=== PATIENT | female | born 1970 | race Caucasian/White ===

== ENCOUNTER 2021-05-21 09:34 | Outpatient (CLI) | payer OTHER, SELFPAY ==
--- NOTE | 2021-05-21 11:30 | NEURO_ITS ---
Impression: # Complains of left foot numbness. # Normal nerve conduction study except left peroneal amplitude drop compared to posterior tibial nerve. # Normal and symmetrical F-waves. # Needle/EMG exam not requested. # Clinical correlation recommended; Possible left peroneal nerve dysfunction. Nerve Conduction Studies Anti Sensory Summary Table Stim Site NR Peak (ms) P-T Amp (?V) Site1 Site2 Delta-P (ms) Dist (cm) Larry (m/s) Left Sup Fibular Anti Sensory (Ant Lat Mall) 14 cm 3.0 13.2 14 cm Ant Lat Mall 3.0 16.0 53 Left Sural Anti Sensory (Lat Mall) Calf 4.0 10.2 Calf Lat Mall 4.0 18.0 45 Motor Summary Table Stim Site NR Onset (ms) O-P Amp (mV) Site1 Site2 Delta-0 (ms) Dist (cm) Larry (m/s) Left Peroneal Motor (Vastus Med) Ankle 3.6 0.9 Popit Ankle 6.8 40.0 59 Popit 10.4 0.8 Left Tibial Motor (Abd Abraham Brev) Ankle 3.8 5.3 Knee Ankle 8.2 41.0 50 Knee 12.0 4.4 F Wave Studies NR F-Lat (ms) L-R F-Lat (ms) Left Peroneal (Mrkrs) (EDB) 50.41 Left Tibial (Mrkrs) (Abd Hallucis) 49.97 MTDD
== END 2021-05-21 09:35 | disposition home or self-care (01) ==
PROVIDERS: PCP Family Medicine Adolescent Medicine; Visit Provider Physician Assistant
DX: M54.2 Cervicalgia (principal)
CPT/HCPCS: 95908

== ENCOUNTER → 2021-08-22 13:01 | Outpatient (CLI) | payer OTHER, SELFPAY ==
--- NOTE | ~2021-08-22 | MM_ITS ---
EXAMINATION: MM screening marzena BI w rolf HISTORY: Screening TECHNIQUE: Craniocaudal and mediolateral oblique 3-D tomosynthesis images were obtained and synthetic 2-D images were generated. CAD analysis was submitted and interpreted. COMPARISON: Comparison to multiple prior studies sequentially, with oldest reviewed study dated 07/07. BREAST PARENCHYMAL COMPOSITION: The breasts are almost entirely fatty. FINDINGS: There is no evidence of suspicious mass, calcification, or architectural distortion to sugg est malignancy in either breast. There has been no suspicious interval change. IMPRESSION: 1. No mammographic evidence of malignancy. 2. Recommend routine screening mammography in one year. BI-RADS Category 1: Negative Reviewed, dictated and finalized at location A. L ENGINEER
== END ==
PROVIDERS: PCP Family Medicine Adolescent Medicine; Visit Provider Nurse Practitioner Obstetrics & Gynecology
DX: Z12.31 Encounter for screening mammogram for malignant neoplasm of breast (principal)
CPT/HCPCS: 77063; 77067

== ENCOUNTER 2022-05-14 19:53 | Emergency (ER) | payer OTHER, SELFPAY ==
[2022-05-14 19:59] VITALS: BP 136/91; PULSE 104; RESP 16; TEMP 36.6; O2SAT 98
--- NOTE | 2022-05-14 20:26 | ED.LOWEXIN ---
HPI - Extremity Injury (Lower) General Chief Complaint: Extremity Injury, Lower Stated Complaint: LLE pain, swelling Time Seen by Provider: 05/14/22 20:23 Source: patient and family Mode of arrival: ambulatory Limitations: no limitations History of Present Illness HPI Narrative: 52 years old white female presents with pain at the left thigh medially and started 2 days ago. Patient denies any trauma, fever, chills, nausea, vomiting. Patient had history of deep vein thrombosis 2006. Currently not on any anticoagulant medication or antiplatelet medication. Related Data Home Medications Medication Instructions Recorded Confirmed cholecalciferol (vitamin D3) 25 25 mcg PO DAILY 04/17/22 04/17/22 mcg (1,000 unit) capsule multivitamin 1 tablet PO DAILY 04/17/22 04/17/22 vitamin B complex (B 1 tablet PO DAILY 04/17/22 04/17/22 Complex-Vitamin B12 tablet) Allergies Allergy/AdvReac Type Severity Reaction Status Date / Time pioglitazone AdvReac Unknown Unknown Verified 05/14/22 20:28 Review of Systems Review of Systems: All systems reviewed & are unremarkable except as noted in HPI and below PMFSH Past Medical History Medical History Hx of deep venous thrombosis Family History Family History Father Hypertension Diabetes mellitus High cholesterol Acute myocardial infarction Heart disease Mother COPD (chronic obstructive pulmonary disease) Grandparent Hypertension Sibling Depression Diabetes mellitus Social History Social History Smoking status: Never smoker Second hand tobacco smoke exposure: No Alcohol intake: current Alcohol use details: Rarely Substance use: never Substance use type: does not use Gender identity (if verbalized by the patient): Female Spiritual care concerns: No Agree to blood products: Yes Exam Narrative: General appearance: Well-developed, well-nourished Skin: Normal color Head: Normocephalic, nontraumatic Eyes: Clear conjunctiva ENT: Oropharynx normal, ears normal, nose normal Neck: Supple, nontender Chest and respiratory: Airway patent, no respiratory distress, no accessory muscle use Heart: Regular rate/rhythm Abdomen: Soft, nontender, no organomegaly, quiet bowel sounds Vascular: Normal peripheral pulses, normal capillary refill. 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 No superficial thrombophlebitis or open skin or discharge. Work-up showed elevated D-dimer, patient had a history of deep vein thrombosis 2006, there is a possibility of deep vein thrombosis at the left lower extremity. Patient received a shot of Lovenox prior to discharge, 1 mg/kg subcu. Scheduled to have venous Doppler of the lower extremity in a.m. Vital Signs Vital signs: Vital Signs Temperature 36.6 C 05/14/22 19:59 Pulse Rate 104 H 05/14/22 19:59 Respiratory Rate 16 05/14/22 19:59 Blood Pressure 136/91 H 05/14/22 19:59 Pulse Oximetry 98 05/14/22 19:59 Oxygen Delivery Room Air 05/14/22
[2022-05-14 20:30] LABS: Basophils Percent Auto 0.4 % (0.2-1.2); Eosinophils Absolute Auto 0.3 K/mm3 (0-0.3); Eosinophils Percent Auto 2.3 % (0-4.4); Hematocrit 43.9 % (37.0-47.0); Hemoglobin 14.4 g/dL (12.0-15.0); Immature Granulocyte Absolute 0.03 K/mm3 (0.00-0.031); Immature Granulocyte Percent A 0.3 % (0-0.5); Lymphocytes Absolute Auto 3.68 K/mm3 (0.9-3.2); Lymphocytes Percent Auto 33.8 % (18.3-44.2); Mean Corpuscular HGB Conc 32.8 g/dl (32-36); Mean Corpuscular Hemoglobin 30.1 pg (26-34); Mean Corpuscular Volume 91.6 fl (80-100); Mean Platelet Volume 9.3 fl (7.4-10.4); Monocytes Absolute Auto 0.8 K/mm3 (0.1-0.6); Monocytes Percent Auto 7.2 % (2.6-8.5); Neutrophils Absolute Auto 6.1 K/mm3 (1.3-6.7); Platelet Count Result 246 k/mm3 (150-375); Red Blood Count 4.79 M/mm3 (4.2-5.4); Red Cell Distribution Width 12.7 % (11.5-14.5); White Blood Count 10.9 K/mm3 (4.5-10.0)
[2022-05-14 20:41] LABS: Prothrombin Time 12.7 Seconds (11.1-14.7)
[2022-05-14 20:42] LABS: Alanine Aminotransferase 32 U/L (6-35); Albumin Level 4.6 g/dL (3.5-5.1); Alkaline Phosphatase 108 U/L (38-126); Anion Gap 14 mmol/L (8-16); Aspartate Amino Transferase 29 U/L (14-36); Bilirubin,Total 0.4 mg/dL (0.2-1.3); Blood Urea Nitrogen 11 mg/dL (7-17); Calcium 9.5 mg/dL (8.4-10.2); Carbon Dioxide 26 mmol/L (22-30); Chloride 99 mmol/L (98-107); Estimated CRCL calculation 129 ml/min; Estimated Glomerular Filt Rate > 60; Glucose 161 mg/dL (65-110); Partial Thromboplastin Time 24.9 SECONDS (22.3-36.8); Potassium 4.6 mmol/L (3.4-5.0); Sodium 139 mmol/L (137-145)
[2022-05-14 20:45] LABS: D Dimer 3.29 ug/mL (<0.48)
[2022-05-14] MEDS: ENOXAPARIN 100 MG/ML SYRINGE 110 MG SUB-Q (21:41)
[2022-05-14 21:53] VITALS: BP 135/91; PULSE 102; RESP 20; O2SAT 97
== END 2022-05-14 21:53 | disposition home or self-care (01) ==
PROVIDERS: Emergency Provider Emergency Medicine; PCP Family Medicine Adolescent Medicine
DX: M79.652 Pain in left thigh (principal); R79.1 Abnormal coagulation profile; Z86.718 Personal history of other venous thrombosis and embolism
CPT/HCPCS: 36415; 80053; 85025; 85380; 85610; 85730; 96372; 99283; J1650

== ENCOUNTER 2022-05-15 07:14 | Outpatient (CLI) | payer OTHER, SELFPAY ==
--- NOTE | ~2022-05-15 | US_ITS ---
EXAMINATION: US venous doppler [facility] DATE: 05/15/2022 08:09 INDICATION: Left lower limb pain and swelling. TECHNIQUE: Grayscale ultrasound images without and with compression and Doppler ultrasound images of the left lower extremity veins were obtained. COMPARISON: None. FINDINGS: The visualized portions of left profunda (deep) femoral vein, femoral vein, popliteal vein, peroneal veins, and posterior tibial veins are patent. There is thrombus in left common femoral vein and great er saphenous vein. IMPRESSION: 1. Deep vein thrombosis involving left common femoral vein. 2. Superficial vein thrombosis involving left greater saphenous vein. Reviewed, dictated and finalized at location A.
== END 2022-05-15 07:15 | disposition home or self-care (01) ==
PROVIDERS: PCP Family Medicine Adolescent Medicine; Visit Provider Family Medicine Adolescent Medicine
DX: M79.89 Other specified soft tissue disorders (principal); I82.412 Acute embolism and thrombosis of left femoral vein
CPT/HCPCS: 93971